=== PATIENT | male | born 1985 | race Hispanic/Latino ===

== ENCOUNTER → 2018-05-30 14:09 | Outpatient (CLI) | payer OTHER, SELFPAY ==
--- NOTE | 2018-05-30 | DI.MRI.S_ITS ---
PROCEDURE: MR WRIST RT WO CON INDICATIONS: TRAUMA TO RIGHT 4TH MCP JOINT. RIGHT WRIST PAIN TECHNIQUE: Noncontrast coronal proton density fast spin echo and T2 fast spin echo with fat saturation; coronal 3-D gradient echo, axial T1 spin echo and T2 fast spin echo with fat saturation, sagittal T1 spin echo through the wrist. COMPARISON: None. FINDINGS: Image quality: Excellent. Bones and cartilage: The carpal bones are normally aligned. No bone marrow contusions or fractures. No evidence for avascular necrosis. Overlying cartilage surfaces appear normal. Carpal ligaments: The scapholunate and lunotriquetral ligaments appear intact. In the absence of intra-articular contrast, the extrinsic carpal ligaments are not well identified. On sagittal images, the pisohamate ligament appears intact. Triangular fibrocartilage complex: The triangular fibrocartilage appears intact. The adjacent meniscal homolog appears normal in the absence of intra-articular contrast. The extensor carpi ulnaris tendon is normal in location and morphology. Tendons and soft tissues: The carpal tunnel structures appear normal, including the median nerve. The ulnar nerve appears normal within Guyon's canal. There is fluid surrounding the extensor carpi radialis brevis and longus tendons in keeping with tenosynovitis. There is also minimal fluid adjacent to the extensor digitorum tendons. IMPRESSION: Extensor carpus radialis longus and brevis and extensor digitorum tenosynovitis. Dictated by: Rich Jackson M.D. on 05/30/2018 at 16:12 Approved by: Rich Jackson M.D. on 05/30/2018 at 16:23
== END ==
PROVIDERS: Visit Provider Radiology Diagnostic Radiology
DX: M25.531 Pain in right wrist (principal); M65.841 Other synovitis and tenosynovitis, right hand
CPT/HCPCS: 73221